=== PATIENT | male | born 1975 | race Caucasian/White ===

== ENCOUNTER 2018-01-23 18:48 | Emergency (ER) | payer MEDICAID, SELFPAY ==
[2018-01-23 18:49] VITALS: BP 129/95; PULSE 82; RESP 18; TEMP 36.9; O2SAT 99; BMI 32.0
--- NOTE | 2018-01-23 19:34 | ED.DEP ---
ED Disposition - Plan for ED Patient: Chief Complaint: Upper Extremity Injury Instructions: ED Arthritis Gout Prescriptions: Colchicine 0.6 mg PO DAILY #3 capsule Referrals: NOT,DEFINED [Primary Care Provider] -
--- NOTE | 2018-01-23 19:41 | ED.DCSUM_ITS ---
- ER Visit Summary Date of Service: 01/23/18 Chief Complaint: Left elbow pain History of Present Illness: The patient is a 42 M presenting with left elbow pain. He states this feels exactly like his previous gout attacks. He states he has had gout attacks for the past 17 years. He has gout in both elbows. He denies any injury. [place] He states typically he receives a shot of steroids, pain medication, and is sent home on colchicine. This typically helps his symptoms. He denies other complaints. Physical Examination: Vitals are stable. Patient is afebrile. Alert no acute distress. HEENT exam is unremarkable. Neck is supple. Lungs are clear and equal bilaterally. Heart is regular rate and rhythm. Abdomen is soft nontender nondistended. Extremities left elbow diffuse tenderness with painful range of motion, neurovascularly intact distally. Skin is warm and dry. No focal neurologic deficit. Remainder of exam is unremarkable. Emergency Department Course and Treatment: Patient is given Dilaudid, Zofran, Kenalog, colchicine. He is given a prescription for colchicine. Advised to follow-up with his primary care physician. Advised return to ED for any worsening complaints. Disposition: Discharge home Impression: Gout left elbow This note was generated with [employer] dictation software. It may contain incorrect words, spelling, and punctuation that were not noted in review of the chart prior to signing ED Disposition - Plan for ED Patient: Chief Complaint: Upper Extremity Injury Instructions: ED Arthritis Gout Prescriptions: Colchicine 0.6 mg PO DAILY #3 capsule Referrals: NOT,DEFINED [Primary Care Provider] -
[2018-01-23] MEDS: Triamcinolone Acetonide 40 MG/ML Vial IM (19:43)
[2018-01-23] MEDS: Ondansetron 4 MG/2 ML Vial IM (19:43)
[2018-01-23] MEDS: HYDROmorphone 1 MG/ML Syringe IM (19:43)
[2018-01-23 20:07] VITALS: BP 114/66; PULSE 82; RESP 16; O2SAT 94
--- NOTE | 2018-01-23 20:08 | ED.RN ---
REVIEWED D/C INSTRUCTIONS, FOLLOW UP CARE, PRESCRIPTION, AND S/S THAT WOULD WARRANT A RETURN TO THE ED WITH PT. PT VERBALIZED AN UNDERSTANDING AND DENIES FURTHER QUESTIONS FOR THIS RN. PT SKIN P/W/D, RESP EVEN AND UNLABORED, PT A&O X 3, NO DISTRESS NOTED. PT AMBULATED OUT OF ED, GAIT STEADY.
== END 2018-01-23 20:10 | disposition home or self-care (01) ==
PROVIDERS: Emergency Provider Emergency Medicine
DX: M10.9 Gout, unspecified (principal); Z72.0 Tobacco use; Z79.899 Other long term (current) drug therapy
CPT/HCPCS: 96372; 99282; J2405